=== PATIENT | female | born 1975 ===

== ENCOUNTER 2021-05-30 21:26 | Emergency (ER) | payer SELFPAY ==
[~2021-05-30] VITALS: Ht 157.5 cm; Wt 79.5 kg
[2021-05-30 21:29] VITALS: BP 129/82
== END 2021-05-30 22:00 | disposition left against medical advice (07) ==
LOC: EMS 21:28
DX: R07.9 Chest pain, unspecified (principal); Z53.21 Procedure and treatment not carried out due to patient leaving prior to being seen by health care provider